=== PATIENT | male | born 1975 | race African-American/Black ===

== ENCOUNTER 2018-05-15 10:25 | Emergency (ER) | payer SELFPAY ==
[~2018-05-15] VITALS: Ht 175.3 cm; Wt 88.0 kg
[2018-05-15] MEDS ORDERED: SODIUM CHLORIDE 0.9% 1,000 ML IV ONE (10:40)
[2018-05-15] MEDS ORDERED: LORAZEPAM 2MG/ML CPJ IV ONE (10:45)
[2018-05-15] MEDS ORDERED: OLANZAPINE 10 MG/VIAL IM ONE (10:45)
[2018-05-15 11:13] LABS: BASOPHILS % 0.4 % (0.0-2.0); EOSINOPHILS % 3.7 % (0.0-5.0); HEMATOCRIT. 46.1 % (42.0-52.0); HEMOGLOBIN. 15.2 g/dL (14.0-18.0); LYMPHOCYTES % 30.2 % (20.0-50.0); MEAN CORPUSCULAR HEMOGLOBIN 27.7 pg (28.0-32.0); MEAN CORPUSCULAR VOLUME 84.1 fL (80.0-94.0); MEAN PLATELET VOLUME 7.8 fl (7.4-10.4); NEUTROPHILS % 53.7 % (40.0-76.0); PLATELET 261 x1000/uL (130-400); RED BLOOD CELL COUNT 5.48 mill/uL (4.7-6.1); RED CELL DISTRIBUTION WIDTH 14.2 % (11.6-14.6)
[2018-05-15 11:18] LABS: CHLORIDE 103 mEq/L (98-107)
[2018-05-15 11:20] LABS: ETHANOL BLOOD < 10 mg/dL
[2018-05-15 16:34] LABS: *BARBITURATES SCREEN URINE NEGATIVE (NEGATIVE); *BENZODIAZEPINES SCREEN URINE NEGATIVE (NEGATIVE)
[2018-05-15 16:35] LABS: *COCAINE SCREEN URINE PRESUMTIVE POSITIVE (NEGATIVE); CANNABINOID URINE SCREEN PRESUMTIVE POSITIVE (NEGATIVE); METHADONE URINE SCREEN NEGATIVE (NEGATIVE); OPIATES URINE SCREEN NEGATIVE (NEGATIVE); PHENCYCLIDINE URINE SCREEN NEGATIVE (NEGATIVE)
[2018-05-15 16:37] LABS: *AMPHETAMINES SCREEN URINE PRESUMTIVE POSITIVE (NEGATIVE)
[2018-05-15 19:34] VITALS: BP 103/63
== END 2018-05-15 19:47 | disposition home or self-care (01) ==
LOC: ER 10:56
DX: G92 Toxic encephalopathy (principal); F14.10 Cocaine abuse, uncomplicated; F15.10 Other stimulant abuse, uncomplicated; F12.10 Cannabis abuse, uncomplicated; F17.200 Nicotine dependence, unspecified, uncomplicated; Z88.0 Allergy status to penicillin
CPT/HCPCS: 36415; 70450; 80048; 80305; 80307; 80329; 85025; 96361; 96372; 96374; 99284; G0482; J2060; J3490; J7030; A4315

== ENCOUNTER 2018-05-17 10:52 | Emergency (ER) | payer SELFPAY ==
[~2018-05-17] VITALS: Ht 175.3 cm; Wt 80.0 kg
[2018-05-17] MEDS ORDERED: LORAZEPAM 2MG/ML CPJ IM STA (11:21)
[2018-05-17] MEDS ORDERED: OLANZAPINE 10 MG/VIAL IM STA (11:21)
[2018-05-17 11:48] LABS: BASOPHILS % 0.9 % (0.0-2.0); HEMATOCRIT. 44.3 % (42.0-52.0); HEMOGLOBIN. 14.5 g/dL (14.0-18.0); LYMPHOCYTES % 35.5 % (20.0-50.0); MEAN CORPUSCULAR HEMOGLOBIN 27.5 pg (28.0-32.0); MEAN CORPUSCULAR VOLUME 83.7 fL (80.0-94.0); MONOCYTES % 8.5 % (2.0-8.0); NEUTROPHILS % 52.1 % (40.0-76.0); PLATELET 240 x1000/uL (130-400); RED BLOOD CELL COUNT 5.29 mill/uL (4.7-6.1); RED CELL DISTRIBUTION WIDTH 14.1 % (11.6-14.6)
[2018-05-17 11:56] LABS: CHLORIDE 107 mEq/L (98-107)
[2018-05-17 11:59] LABS: ETHANOL BLOOD < 10 mg/dL
[2018-05-17 13:39] VITALS: BP 112/67
[2018-05-17 14:33] LABS: CLARITY URINE CLEAR (CLEAR); COLOR URINE YELLOW (YELLOW); KETONES URINE TRACE (NEGATIVE); LEUKOCYTE ESTERASE URINE TRACE (NEGATIVE); NITRITE URINE NEGATIVE (NEGATIVE); OCCULT BLOOD URINE 1+ (NEGATIVE); PH URINE 5.5 (4.5-8.0); PROTEIN URINE NEGATIVE (NEGATIVE); SPECIFIC GRAVITY URINE 1.021 (1.005-1.030); UROBILINOGEN URINE 0.2 E.U./dL (0.2-1.0)
[2018-05-17 14:52] LABS: *BENZODIAZEPINES SCREEN URINE NEGATIVE (NEGATIVE); *COCAINE SCREEN URINE PRESUMTIVE POSITIVE (NEGATIVE); METHADONE URINE SCREEN NEGATIVE (NEGATIVE)
[2018-05-17 14:53] LABS: *AMPHETAMINES SCREEN URINE PRESUMTIVE POSITIVE (NEGATIVE); *BARBITURATES SCREEN URINE NEGATIVE (NEGATIVE); CANNABINOID URINE SCREEN PRESUMTIVE POSITIVE (NEGATIVE); OPIATES URINE SCREEN NEGATIVE (NEGATIVE); PHENCYCLIDINE URINE SCREEN NEGATIVE (NEGATIVE)
== END 2018-05-17 16:00 | disposition home or self-care (01) ==
LOC: ER 11:48
DX: T40.5X2A Poisoning by cocaine, intentional self-harm, initial encounter (principal); T43.622A Poisoning by amphetamines, intentional self-harm, initial encounter; R45.1 Restlessness and agitation; F12.10 Cannabis abuse, uncomplicated; F31.9 Bipolar disorder, unspecified; Z78.1 Physical restraint status; Z88.0 Allergy status to penicillin; Y92.488 Other paved roadways as the place of occurrence of the external cause
CPT/HCPCS: 36415; 80053; 80305; 81003; 85025; 96372; 99283; G0482; J2060; J3490